=== PATIENT | female | born 1990 | race Caucasian/White ===

== ENCOUNTER 2019-05-25 19:40 | Emergency (ER) | payer BC ==
[2019-05-25] MEDS ORDERED: Ibuprofen 800 MG TAB ONE (19:59)
[2019-05-25] MEDS ORDERED: HYDROcodone/Acetaminophen 10/325 mg Tablet ONE (19:59)
[2019-05-25 20:26] LABS: MONO NEGATIVE CONTROL ZONE White (Negative) (White); MONO POSITIVE CONTROL Pink Line (Positive) (PINK/RED); Mononucleosis NEGATIVE (NEGATIVE)
[2019-05-25] MEDS ORDERED: Dexamethasone 4 mg/ml Vial ONE (20:33)
== END 2019-05-25 20:48 | disposition home or self-care (01) ==
LOC: BURERS 19:40
DX: R59.0 Localized enlarged lymph nodes (principal); F17.210 Nicotine dependence, cigarettes, uncomplicated; F17.290 Nicotine dependence, other tobacco product, uncomplicated
CPT/HCPCS: 36415; 86308; 96372; 99283; J1100